=== PATIENT | female | born 1980 | race African-American/Black ===

== ENCOUNTER 2016-05-16 15:03 | Emergency (ER) | payer OTHER ==
[~2016-05-16] VITALS: Ht 165.1 cm; Wt 69.3 kg
[2016-05-16] MEDS ORDERED: SODIUM CHLORIDE FLUSH 10ML SYR IVF ONE (15:30)
[2016-05-16] MEDS ORDERED: LISI-170 PO (15:40)
[2016-05-16] MEDS ORDERED: TOPI100T24 PO (15:40)
[2016-05-16 16:08] LABS: HEMOGLOBIN 12.5 g/dL (11.7-16.4)
[2016-05-16 16:14] LABS: BLOOD UREA NITROGEN 14 mg/dL (7-18)
[2016-05-16 17:54] VITALS: BP 139/98
[2016-05-16] MEDS ORDERED: OMNIPAQUE 350 MG/ML, 100ML BOTTLE ONE (18:20)
== END 2016-05-16 19:11 | disposition home or self-care (01) ==
LOC: ED 16:12
DX: R06.00 Dyspnea, unspecified (principal); R06.02 Shortness of breath; I10 Essential (primary) hypertension
CPT/HCPCS: 36415; 71010; 71275; 80048; 82040; 85025; 85379; 93005; 99285; Q9967

== ENCOUNTER → 2016-07-08 | Outpatient (CLI) | payer OTHER ==
[~2016-07-08] MED LIST: GADOBUTROL 7.5 MMOL/7.5 ML VIAL ONE; LISI-170 PO; TOPI100T24 PO
== END | disposition home or self-care (01) ==
LOC: CFH 09:15
PROVIDERS: ATTEND Nurse Practitioner Family
DX: R22.31 Localized swelling, mass and lump, right upper limb (principal)
CPT/HCPCS: 73220; 73221; A9585

== ENCOUNTER 2016-10-18 18:37 | Observation (INO) | payer OTHER ==
[~2016-10-18] VITALS: Ht 165.1 cm; Wt 75.9 kg
[~2016-10-18 18:37] MED LIST changes: -GADOBUTROL 7.5 MMOL/7.5 ML VIAL ONE
[2016-10-18] MEDS ORDERED: MORPHINE SULFATE 4 MG/ML, 1ML ONE ×2 (19:28→21:16)
[2016-10-18] MEDS ORDERED: ONDANSETRON 2MG/ML, 2ML ONE (19:28)
[2016-10-18] MEDS ORDERED: SODIUM CHLORIDE 0.9% 1,000ML IVBOLUS ONE (19:30)
[2016-10-18] MEDS ORDERED: ONDANSETRON 2MG/ML, 2ML IVPush ONE (19:30)
[2016-10-18] MEDS ORDERED: SODIUM CHLORIDE FLUSH 10ML SYR IVF ONE (19:30)
[2016-10-18] MEDS: MORPHINE SULFATE 4 MG/ML, 1ML IVPush PRN ×2 (19:31→21:37)
[2016-10-18 19:37] LABS: HEMATOCRIT 38.7 % (34.6-47.8)
[2016-10-18 19:49] LABS: BLOOD UREA NITROGEN 15 mg/dL (7-18)
[2016-10-18] MEDS ORDERED: LISI1TAB5 PO (20:10)
[2016-10-18] MEDS ORDERED: CEFOTETAN PMX 1GM/50ML 50 ML ONE (20:57)
[2016-10-18] MEDS ORDERED: CEFOTETAN PMX 1GM/50ML 50 ML IV ONE (21:00)
[2016-10-18] MEDS ORDERED: POTASSIUM CHLORIDE 20 MEQ in D5%-0.45% NACL 1,000 ML IV ONE (21:12)
[2016-10-18] MEDS ORDERED: ONDANSETRON 2MG/ML, 2ML IVPush PRN (21:30)
[2016-10-18] MEDS ORDERED: HYDROmorphone 1 MG/ML, 1ML IVPush PRN (21:30)
[2016-10-18] MEDS ORDERED: SODIUM CHLORIDE FLUSH 10ML SYR IVF PRN (21:30)
[2016-10-18] MEDS ORDERED: OMNIPAQUE 350 MG/ML, 100ML BOTTLE ONE (22:29)
[2016-10-18 22:50] VITALS: BP 134/76
[2016-10-19 03:26] VITALS: BP 121/84
[2016-10-19] MEDS ORDERED: BUPIVACAINE/PF 0.5% ONE (05:45)
[2016-10-19] MEDS ORDERED: EPINEPHRINE 1 MG/ML, 1ML ONE (05:46)
[2016-10-19] MEDS ORDERED: MIDAZOLAM 1 MG/ML, 2ML ONE (06:59)
[2016-10-19] MEDS ORDERED: FENTANYL PF 100 MCG/2ML ONE ×2 (06:59→08:17)
[2016-10-19] MEDS ORDERED: MEPERIDINE/PF 25MG/0.5ML IVPush PRN (07:00)
[2016-10-19] MEDS ORDERED: EPHEDRINE 50 MG/ML, 1ML IVPush PRN (07:00)
[2016-10-19] MEDS ORDERED: ALBUTEROL SULFATE 2.5 MG/3 ML NPPB PRN (07:00)
[2016-10-19] MEDS ORDERED: PROMETHAZINE 25 MG/ML, 1ML IV PRN (07:00)
[2016-10-19] MEDS ORDERED: LABETALOL 5MG/ML, 20ML IV PRN (07:00)
[2016-10-19] MEDS ORDERED: hydrALAzine 20 MG/ML, 1ML IV PRN (07:00)
[2016-10-19] MEDS ORDERED: KETOROLAC 30 MG/1 ML IV PRN (07:00)
[2016-10-19] MEDS ORDERED: METOPROLOL 1 MG/ML, 5ML IV PRN (07:00)
[2016-10-19] MEDS ORDERED: ONDANSETRON 2MG/ML, 2ML IVPush PRN ×2 (07:00)
[2016-10-19] MEDS ORDERED: METOCLOPRAMIDE 5 MG/ML, 2ML IV PRN (07:00)
[2016-10-19] MEDS ORDERED: ROCURONIUM 10 MG/ML ONE (07:13)
[2016-10-19] MEDS ORDERED: DEXAMETHASONE 4 MG/ML, 1ML ONE (07:13)
[2016-10-19] MEDS ORDERED: ONDANSETRON 2MG/ML, 2ML ONE (07:13)
[2016-10-19] MEDS ORDERED: CEFAZOLIN 1,000 MG ONE (07:13)
[2016-10-19] MEDS ORDERED: SUCCINYLCHOLINE 20 MG/ML, 10ML ONE (07:13)
[2016-10-19] MEDS ORDERED: PROPOFOL 10 MG/ML, 20ML ONE (07:13)
[2016-10-19] MEDS ORDERED: BUPIVACAINE/PF-EPI 0.5% 1:200K INFIL ONE (07:40)
[2016-10-19] MEDS ORDERED: HYDROmorphone 1 MG/ML, 1ML IVPush PRN ×2 (08:00)
[2016-10-19] MEDS ORDERED: HYDROcodone/APAP 5/325 TABLET PO PRN (08:00)
[2016-10-19] MEDS ORDERED: KETOROLAC 30 MG/1 ML ONE (08:12)
[2016-10-19] MEDS ORDERED: OXYcodone 5 MG/5 ML ORAL.SOL UDC ONE ×2 (08:17→08:44)
[2016-10-19] MEDS ORDERED: ACETAMINOPHEN 650 MG/20.3 ML UDC ONE (08:17)
[2016-10-19] MEDS: FENTANYL PF 100 MCG/2ML IV PRN ×3 (08:18→08:36)
[2016-10-19] MEDS: OXYcodone 5 MG/5 ML ORAL.SOL UDC PO PRN ×2 (08:21→08:48)
[2016-10-19] MEDS ORDERED: ACETAMINOPHEN 325 MG TABLET PO PRN (08:30)
[2016-10-19] MEDS ORDERED: HYDROmorphone 1 MG/ML, 1ML ONE (08:44)
[2016-10-19] MEDS: HYDROmorphone 1 MG/ML, 1ML IV PRN ×2 (08:48→09:01)
[2016-10-19 09:25] VITALS: BP 135/92
[2016-10-19] MEDS ORDERED: HYDR-3240 PO (11:00)
[2016-10-19 14:30] VITALS: BP 126/70
== END 2016-10-19 15:10 | disposition home or self-care (01) ==
LOC: ED 19:44 → EDIP 21:12 → INTOOBSV 21:12 → 4NOR 22:34
PROVIDERS: ADMIT Thoracic Surgery (Cardiothoracic Vascular Surgery); ATTEND Thoracic Surgery (Cardiothoracic Vascular Surgery)
DX: K35.80 Unspecified acute appendicitis (principal); N83.202 Unspecified ovarian cyst, left side; I10 Essential (primary) hypertension; K21.9 Gastro-esophageal reflux disease without esophagitis
CPT/HCPCS: 36415; 44970; 74177; 80048; 81001; 82040; 84703; 85025; 88304; 96365; 96375; 96376; 99285; G0378; J0171; J0330; J0690; J1100; J1170; J1885; J2250; J2405; J2704; J3010; J3480; J3490; J7030; Q9967; S0074

== ENCOUNTER → 2017-02-26 | Outpatient (CLI) | payer OTHER ==
[~2017-02-26] MED LIST changes: +HYDR-3240 PO; +LISI1TAB5 PO
== END | disposition home or self-care (01) ==
LOC: CFH 13:37
PROVIDERS: ATTEND Nurse Practitioner Family
DX: N83.201 Unspecified ovarian cyst, right side (principal); K42.9 Umbilical hernia without obstruction or gangrene; I72.8 Aneurysm of other specified arteries; I83.90 Asymptomatic varicose veins of unspecified lower extremity
CPT/HCPCS: 74177; 82565